=== PATIENT | male | born 1970 | race Caucasian/White ===

== ENCOUNTER 2022-10-15 15:07 | Outpatient (RCR) | payer BC, SELFPAY | END 2022-11-26 17:09 | disposition home or self-care (01) | LOC: PT 15:07 | PROVIDERS: PCP Family Medicine; Visit Provider Family Medicine | DX: M25.511 Pain in right shoulder (principal); G89.28 Other chronic postprocedural pain | CPT/HCPCS: 97010; 97014; 97110; 97112; 97140; 97162 ==

== ENCOUNTER 2022-12-01 15:16 | Outpatient (OUT) | payer BC, SELFPAY | END 2022-12-01 15:17 | disposition home or self-care (01) | LOC: PST 15:16 | PROVIDERS: PCP Family Medicine; Visit Provider Surgery | DX: Z01.818 Encounter for other preprocedural examination (principal); Z12.11 Encounter for screening for malignant neoplasm of colon ==

== ENCOUNTER 2022-12-03 06:46 | Day surgery (SDC) | payer BC, SELFPAY ==
--- NOTE | 2022-11-25 13:14 | PC.NURSE ---
Nov 25, 2022 1310 attempted for the second time to verify patient health history and go over instructions for colonoscopy. No answer. Left message for patient to call pre -admission testing if he is going to have procedure done.
--- NOTE | 2022-12-03 | OP_ITS ---
OPERATION DATE: ??12/03/2022 PREOPERATIVE DIAGNOSIS:? Colorectal screening. POSTOPERATIVE DIAGNOSIS:? A 2 mm rectal polyp. PROCEDURE:? Colonoscopy to cecum with cold biopsy forceps polypectomy x1. SURGEON:? Kalen Gregory M.D. ANESTHESIA:? Monitored anesthesia care. ESTIMATED BLOOD LOSS:? Less than 1 mL. INDICATIONS AND CONSENT:? Patient is a 52-year-old male presents for colorectal screening.? Indications, risks, benefits, alternatives of proceeding with colonoscopy were explained extensively to the patient, including the risks of bleeding, colon perforation or anesthetic complications.? All of his questions were answered.? Informed consent was obtained. PROCEDURE:? Patient brought to the operating room, placed in the left lateral decubitus position.? Monitored anesthesia care was provided.? Rectal exam was performed which showed no masses or blood.? The scope was inserted into the anal canal.? Under direct visualization was advanced.? With the aid of abdominal compression, it was advanced to the cecum where cecal markings were clearly identified.? Upon withdrawal of the scope, mucosal surfaces were carefully examined.? There was noted to be a good prep.? There were no mass lesions or polyps.? No inflammatory changes or ulcerations.? No significant diverticulosis.? Within the rectum, there was noted to be a 2 mm sessile polyp that was removed with cold biopsy forceps with good hemostasis.? The scope was retroflexed in the anal canal.? There was no significant hemorrhoidal disease.? Scope was then withdrawn.? Patient tolerated procedure well, was sent to recovery room in good condition. f/u colonoscopy likely in 5 years, but may change based on pathology report. CC:? Dr. Cherise HOYOS
[2022-12-03 07:02] VITALS: BP 117/78; PULSE 78; RESP 18; TEMP 36.2; O2SAT 97; BMI 23.6
[2022-12-03] MEDS: LACTATED RINGER'S SOLUTION 1,000 ML 50 ML IV (07:09)
[2022-12-03 08:22] VITALS: BP 110/36; PULSE 79; RESP 14; TEMP 36.2; O2SAT 96
[2022-12-03 08:37] VITALS: BP 110/81; PULSE 72; RESP 16; O2SAT 98
[2022-12-03 08:51] VITALS: BP 116/90; PULSE 67; RESP 16; O2SAT 98
== END 2022-12-03 08:52 | disposition home or self-care (01) ==
PROVIDERS: PCP Family Medicine; Visit Provider Surgery
PROC: (CPT 45380; principal; 2022-12-03 08:00)
DX: Z12.11 Encounter for screening for malignant neoplasm of colon (principal); K62.1 Rectal polyp; M19.90 Unspecified osteoarthritis, unspecified site; Z87.442 Personal history of urinary calculi; Z80.0 Family history of malignant neoplasm of digestive organs
CPT/HCPCS: 45380; 88305; J2704

== ENCOUNTER 2023-01-28 14:50 | Outpatient (OUT) | payer BC, SELFPAY ==
--- NOTE | 2023-01-28 15:08 | XR_ITS ---
The [address] [address] Patient Name: ETHAN GOULD MRN: [id number] date: 1970 Sex: M Assigned Patient Location: LAB Current Patient Location: Accession/Order Number: [id number] Exam Date: 01/28/2023 15:12 Report Date: 01/30/2023 08:45 At the request of: BARRETT BANUELOS Procedure: XR abdomen 1V EXAMINATION: XR abdomen 1V HISTORY: Kidney Stone N20.0 COMPARISON: XR KUB 02/06/2022 FINDINGS: KIDNEY/URETER - RIGHT: No visible renal or ureteral calcifications. KIDNEY/URETER - LEFT: No visible renal or ureteral calcifications. PELVIS: No visible ureteral stones. Stable pelvic calcifications compatible with phleboliths. BOWEL: No abnormal dilation or deviation. BONES: Stable marked scoliosis. OTHER: Negative. No abnormal gaseous collections. XR/XR abdomen 1V IMPRESSION: 1. No appreciable urinary tract calculi. Electronically authenticated by: DICK STANLEY Date: 01/30/2023 08:45
[2023-01-28 15:46] LABS: Prostate Specific Antigen Dx 0.76 ng/mL (<=4.00)
== END 2023-01-28 14:51 | disposition home or self-care (01) ==
LOC: LAB 14:51
PROVIDERS: PCP Family Medicine; Visit Provider Urology
DX: Z12.5 Encounter for screening for malignant neoplasm of prostate (principal)
CPT/HCPCS: 36415; 74018; 84153

== ENCOUNTER 2023-05-12 12:43 | Outpatient (RCR) | payer BC, SELFPAY | END 2023-08-08 12:39 | disposition home or self-care (01) | LOC: PT 12:43 | PROVIDERS: PCP Family Medicine; Visit Provider Orthopaedic Surgery | DX: M25.511 Pain in right shoulder (principal) | CPT/HCPCS: 97010; 97110; 97140; 97162 ==